=== PATIENT | male | born 1995 | race Caucasian/White ===

== ENCOUNTER 2019-06-04 00:35 | Emergency (ER) | payer OTHER ==
[2019-06-04 00:41] VITALS: BP 120/88
--- NOTE | 2019-06-04 00:48 | ED ---
Laceration/Wound HPI - HPI Summary HPI Summary: 24-year-old male presents to the emergency department today with a laceration to his right eyebrow after falling down after swinging from the bar's evening. Patient reports having 5 drinks this evening. Patient denies loss of consciousness or amnesia. Patient states he is up-to-date with his tetanus immunization. Patient denies headache, changes in vision, lightheadedness. Patient otherwise feels well and has full motor function of the face. Patient denies fever, chest pain, abdominal pain, pain with urination, rash, nausea, vomiting, diarrhea, neck pain. Surgical history family history is noncontributory. - History of Current Complaint Stated Complaint: SPLIT HEAD OPEN PER PT Time Seen by Provider: 06/04/19 00:48 Hx Obtained From: Patient Mechanism of Injury: Sharp/Blunt Trauma Onset/Duration: Sudden Onset Aggravating: Movement Timing: Constant Onset Severity: Mild Current Severity: Mild Pain Intensity: 3 Pain Scale Used: 0-10 Numeric Associated Signs & Symptoms: Pain - Allergy/Home Medications Allergies/Adverse Reactions: Allergies Allergy/AdvReac Type Severity Reaction Status Date / Time No Known Allergies Allergy Verified 06/04/19 00:37 PMH/Surg Hx/FS Hx/Imm Hx Infectious Disease History: No Infectious Disease History: Denies: Traveled Outside the [place] in Last 30 Days Review of Systems Constitutional: Negative Eyes: Negative ENT: Negative Cardiovascular: Negative Respiratory: Negative Gastrointestinal: Negative Genitourinary: Negative Musculoskeletal: Negative Skin: Negative Neurological/Mental Status: Negative Psychological: Normal All Other Systems Reviewed And Are Negative: Yes Physical Exam - Summary Physical Exam Summary: Patient is in no acute distress. There is a 1.5 cm laceration noted to the right eyebrow. No obvious involvement of the frontalis muscle. Patient has full movement of the extraocular muscles and facial muscles. Triage Information Reviewed: Yes Vital Signs On Initial Exam: Initial Vitals Temp Pulse Resp BP Pulse Ox 98.3 F 102 18 120/88 98 06/04/19 00:37 06/04/19 00:37 06/04/19 00:37 06/04/19 00:37 06/04/19 00:37 Vital Signs Reviewed: Yes Appearance: Positive: Well-Appearing, No Pain Distress, Well-Nourished Skin: Positive: Warm, Skin Color Reflects Adequate Perfusion Eyes: Positive: EOMI, YURY ENT: Positive: Hearing grossly normal Respiratory/Lung Sounds: Positive: Clear to Auscultation, Breath Sounds Present Cardiovascular: Positive: RRR, S1, S2 Abdomen Description: Positive: Nontender, Soft Bowel Sounds: Positive: Present Musculoskeletal: Positive: Strength/ROM Intact Neurological: Positive: Sensory/Motor Intact, Alert, Oriented to Person Place, Time, Normal Gait, Facial Symmetry, Speech Normal Psychiatric: Positive: Normal, Affect/Mood Appropriate AVPU Assessment: Alert Procedures - Sedation Patient Received Moderate/Deep Sedation with Procedure: No - Laceration/Wound Repair 1 Location: face Description: Linear Anesthesia: Local, 1.0% Length, Depth and Shape: 1.5cm x 1cm deep Betadine Prep?: No Irrigated w/ Saline (ccs): 100 Laceration/Wound Explored: clean, no foreign body removed Closure: Multilayer Suture Type: Prolene Number of Sutures: 6 - 2 internal stitches using 5-0 rapid gut. Four external stitches in simple interrupted fashion using 6-0 Prolene. Layer Closure?: Yes Sterile Dressing Applied?: Yes Diagnostics - Vital Signs Vital Signs Temp Pulse Resp BP Pulse Ox 06/04/19 00:37 98.3 F 102 18 120/88 98 - Laboratory Lab Statement: Any lab studies that have been ordered have been reviewed, and results considered in the medical decision making process. Laceration Repair Course/Dx - Course Course Of Treatment: Patient was evaluated in the emergency department today for facial laceration. Laceration was to the right eyebrow which measures 1.5 cm in length by once a meter deep. There is no involvement of the extra ocular muscles or periorbital muscles. Laceration was approximated using 2 deep sutures of 50 rapid gut and an external layer was applied using 4 sutures placed in simple interrupted fashion of 6-0 Prolene. Patient's tetanus is up-to -date. Dressing was placed over patient's wounds and patient was discharged to outpatient follow-up. Patient to have 4 sutures removed in 7-8 days. - Differential Dx Differental Diagnoses: Abrasion, Laceration, Puncture Wound, Tendon Laceration - Clinical Impression Provider Diagnoses: Laceration of face Discharge ED - Sign-Out/Discharge Documenting (check all that apply): Patient Departure - Discharge Plan Condition: Stable Disposition: HOME Patient Education Materials: Care For Your Stitches (ED), Laceration (ED) Additional Instructions: Please take ibuprofen 600 mg every 6 hours as needed for pain. Please keep your wound dry for approximately 12 hours and then gently rinse it with soapy water and pat dry. Please return to this emergency department or an urgent care or your [facility] clinic for suture removal in 8 days. There were 4 sutures placed. Please return to this emergency Department immediately if he develops any new or worsening symptoms. - Billing Disposition and Condition Condition: STABLE Disposition: Home
== END 2019-06-04 02:15 | disposition home or self-care (01) ==
LOC: ED 00:35
DX: S01.111A Laceration without foreign body of right eyelid and periocular area, initial encounter (principal); W17.89XA Other fall from one level to another, initial encounter; Y92.9 Unspecified place or not applicable
CPT/HCPCS: 12001; 99281